=== PATIENT | male | born 1960 | race Caucasian/White ===

== ENCOUNTER 2017-04-02 14:36 | Emergency (ER) | payer OTHER ==
[~2017-04-02] VITALS: Ht 180.3 cm; Wt 106.6 kg
[~2017-04-02 14:36] MED LIST: FIORICET 325 MG1 TAB PO; LOMOTIL 0.025 M1 TAB PO
[2017-04-02 14:41] VITALS: BP 115/79
--- NOTE | 2017-04-02 14:46 | ED GENERAL ADULT ---
History of Present Illness General Chief Complaint: General Adult Stated Complaint: MED REFILL Source: patient Exam Limitations: no limitations Vital Signs & Intake/Output Vital Signs & Intake/Output Vital Signs Date Time Temp Pulse Resp B/P B/P Pulse O2 O2 Flow FiO2 Mean Ox Delivery Rate 04/02 1441 97.5 77 20 115/79 98 Room Air Allergies Coded Allergies: NO KNOWN ALLERGIES (05/09/14) Reconcile Medications Acetaminophen/Butalbital/Caf (Fioricet 325 MG-50 MG-40 MG) 1 TAB TAB 1 TAB PO TID PRN HEADACHE Bupropion HCl (Bupropion XL) 300 MG TAB.ER.24H 1 TAB PO DAILY DEPRESSION DIPHENOXYLATE HCL/ATROPINE (Lomotil 2.5-0.025 MG Tablet) 1 TAB TAB 1 TAB PO TID PRN DIARRHEA Divalproex Sodium (Depakote ER) 500 MG TAB.ER.24H 1 TAB PO QPM BIPOLAR Divalproex Sodium (Depakote ER) 250 MG TAB.ER.24H 1 TAB PO QPM BIPOLAR Propranolol HCl 10 MG TABLET 1 TAB PO BID ANXIETY Quetiapine Fumarate 200 MG TABLET 1 TAB PO QAM ANXIETY/BIPOLAR Quetiapine Fumarate (Seroquel XR) 400 MG TAB.ER.24H 1 TAB PO QPM BIPOLAR Triage Note: PT REQUESTING REFILL OF DEPRESSION MEDS AND ANGER MEDS. HAS APPT AT [facility] ON April. PT HAS BAG OF MEDS WITH HIM Triage Nurses Notes Reviewed? yes Onset: Abrupt Duration: day(s):, constant Timing: recent history Injury Environment: home No Modifying Factors: none HPI: 56-year-old male comes into the emergency room for many [place] refill. He is on many psych meds for his bipolar depression and anxiety. He reports he has an appointment with [facility] on April 12. He is currently in the transfer of his care from another facility. Denies SI or HI. Denies any other system symptoms. strictly here for medication refill. Past History Travel History Traveled to [place] past 21 day No Medical History Any Pertinent Medical History? see below for history Psychiatric: bipolar disease, depression, ANGER Surgical History Surgical History: c-spine surgery Psychosocial History Who do you live with Patient/Self Services at Home None What is your primary language Lithuanian Tobacco Use: Current Daily Use Daily Tobacco Use Amount/Type: => 5 Cigarettes daily ETOH Use: denies use Illicit Drug Use: denies illicit drug use Family History Hx Contributory? No Review of Systems Review of Systems Constitutional: Reports: no symptoms. EENTM: Reports: no symptoms. Respiratory: Reports: no symptoms. Cardiovascular: Reports: no symptoms. GI: Reports: no symptoms. Genitourinary: Reports: no symptoms. Musculoskeletal: Reports: no symptoms. Skin: Reports: no symptoms. Neurological/Psychological: Reports: see HPI. Hematologic/Endocrine: Reports: no symptoms. Immunologic/Allergic: Reports: no symptoms. All Other Systems: Reviewed and Negative Physical Exam Physical Exam General Appearance: well developed/nourished, no apparent distress, alert, awake Head: atraumatic, normal appearance Eyes: Bilateral: normal appearance. Ears, Nose, Throat: normal ENT inspection, hearing grossly normal Neck: normal inspection Respiratory: no respiratory distress Back: normal range of motion Extremities: no edema Neurologic/Psych: awake, alert, oriented x 3 Skin: intact, normal color Core Measures ACS in differential dx? No CVA/TIA Diagnosis: No Sepsis Present: No Sepsis Focused Exam Completed? No Progress Differential Diagnoses I considered the following diagnoses in my evaluation of the patient: Anxiety, depression, bipolar, Plan of Care: 04/02/2017 3:52:06 PM Patient was given a refill on medications. Follow-up with PCP. Return if any concerns worsening symptoms. Follow-up with new psychiatrist. Initial ED EKG: none Departure Departure Disposition: HOME OR SELF CARE Condition: Stable Clinical Impression Primary Impression: Medication refill Referrals: Hi Mahoney MD (PCP/Family) Additional Instructions: Take your medications as prescribed. Follow-up with your psychiatric appointment. Return if any concerns worsening symptoms. Please go over all results of today's visit with your primary care doctor. Contact your primary care doctor to let them know you were here in the emergency room. There may be nonspecific findings which may not be related to your visit today here in the emergency room but may require further evaluation and chronic monitoring by your primary care doctor. If you had a laceration today the chance of foreign body always remains. You should follow-up with your primary care doctor for recheck in 3-5 days for a wound check. If you had an x-ray done there is a chance that a fracture could have been missed on initial read and you should follow-up with your primary care doctor for repeat x-rays if symptoms persist. If your blood pressure was elevated here in the emergency room please have rechecked by amie primary care doctor within the next 48. If you were prescribed a narcotic here in the emergency room or any type of controlled substances you're not allowed to drive while taking this medication or operate any type of heavy machinery. Narcotics can make you feel lightheaded dizziness nausea and can cause constipation. You may need to pickle solution maker a stool softener. Thank you for choosing [facility] emergency room. Please return to the emergency room immediately if you have any other concerns worsening of symptoms. Departure Forms: Customer Survey General Discharge Information Prescriptions: Current Visit Scripts Quetiapine Fumarate 1 TAB PO QAM #15 TAB Divalproex Sodium (Depakote ER) 1 TAB PO QPM #15 TAB Propranolol HCl 1 TAB PO BID #30 TAB Bupropion HCl (Bupropion XL) 1 TAB PO DAILY #15 TAB Quetiapine Fumarate (Seroquel XR) 1 TAB PO QPM #15 TAB Divalproex Sodium (Depakote ER) 1 TAB PO QPM #15 TAB Critical Care Note Critical Care Note Critical Care Time: non-applicable
[2017-04-02] MEDS ORDERED: QUETIAPINE FUM200 M1 PO (15:16)
[2017-04-02] MEDS ORDERED: DEPAKOTE ER250 M1 PO (15:16)
[2017-04-02] MEDS ORDERED: SEROQUEL XR400 M1 PO (15:16)
[2017-04-02] MEDS ORDERED: DEPAKOTE ER500 M1 PO (15:16)
[2017-04-02] MEDS ORDERED: BUPROPION XL300 M1 PO (15:16)
[2017-04-02] MEDS ORDERED: PROPRANOLOL HCL10 M1 PO (15:16)
== END 2017-04-02 15:27 ==
LOC: ERH 14:36
DX: Z76.0 Encounter for issue of repeat prescription (principal)
CPT/HCPCS: 99281

== ENCOUNTER 2017-05-04 16:21 | Emergency (ER) | payer OTHER ==
[~2017-05-04] VITALS: Ht 180.3 cm; Wt 108.9 kg
[~2017-05-04 16:21] MED LIST changes: +BUPROPION XL300 M1 PO; +DEPAKOTE ER250 M1 PO; +DEPAKOTE ER500 M1 PO; +DIVALPROEX SOD250 M3 PO; +DIVALPROEX SOD500 M3 PO; +PROPRANOLOL HCL10 M1 PO; +QUETIAPINE FUM200 M1 PO; +SEROQUEL XR200 M1 PO; +SEROQUEL XR400 M1 PO
--- NOTE | 2017-05-04 16:54 | ED GENERAL ADULT ---
History of Present Illness General Chief Complaint: General Adult Stated Complaint: PT HERE FOR REFILL FOR RX Source: patient Exam Limitations: no limitations Vital Signs & Intake/Output Vital Signs & Intake/Output Vital Signs Date Time Temp Pulse Resp B/P B/P Pulse O2 O2 Flow FiO2 Mean Ox Delivery Rate 05/04 1745 97.8 69 16 138/76 98 Room Air 05/04 1627 97.5 64 16 142/87 97 Allergies Coded Allergies: NO KNOWN ALLERGIES (05/09/14) Reconcile Medications Acetaminophen/Butalbital/Caf (Fioricet 325 MG-50 MG-40 MG) 1 TAB TAB 1 TAB PO TID PRN HEADACHE Bupropion HCl (Bupropion XL) 300 MG TAB.ER.24H 1 TAB PO DAILY DEPRESSION Bupropion HCl (Bupropion XL) 300 MG TAB.ER.24H 1 TAB PO DAILY DEPRESSION DIPHENOXYLATE HCL/ATROPINE (Lomotil 2.5-0.025 MG Tablet) 1 TAB TAB 1 TAB PO TID PRN DIARRHEA Divalproex Sodium (Depakote ER) 500 MG TAB.ER.24H 1 TAB PO QPM BIPOLAR Divalproex Sodium (Depakote ER) 250 MG TAB.ER.24H 1 TAB PO QPM BIPOLAR Divalproex Sodium (Divalproex Sodium ER) 250 MG TAB.ER.24H 1 TAB PO QPM BIPOLAR Divalproex Sodium (Divalproex Sodium ER) 500 MG TAB.ER.24H 2 TAB PO QPM BIPOLAR Propranolol HCl 10 MG TABLET 1 TAB PO BID ANXIETY Propranolol HCl 10 MG TABLET 1 TAB PO DAILY PSYCH TAKE ONE IN AFTERNOON Quetiapine Fumarate 200 MG TABLET 1 TAB PO QAM ANXIETY/BIPOLAR Quetiapine Fumarate (Seroquel XR) 400 MG TAB.ER.24H 1 TAB PO QPM BIPOLAR Quetiapine Fumarate 200 MG TABLET 1 TAB PO QAM ANXIETY/BIPOLAR Quetiapine Fumarate (Seroquel XR) 200 MG TAB.ER.24H 2 TAB PO QPM BIPOLAR Triage Note: PT STATES THAT HE MISSED HIS D[facility] APPOINTMENT YESTERDAY AND THAT HE NEEDS A REFILL ON DEPAKOTE,WELLBUTRIN,PROPRANOLOL. STATES THAT HE IS IN BETWEEN DOCTORS Triage Nurses Notes Reviewed? yes Onset: Gradual Duration: constant Timing: recent history Severity: moderate Severity Numbers: 5 HPI: Patient is a 57-year-old male with a past medical history of depression and bipolar disorder who presents to the emergency room only for medication refill where he states that earlier this week he missed his [facility] appointment because he slept in which patient has ran out of his medications 2 days ago, patient has ran out of propranolol Depakote Seroquel and bupropion. Patient denies any illness denies any suicidal homicidal ideation or change in anxiety or depression is otherwise without complaints (Mark Iraheta) Past History Travel History Traveled to [place] past 21 day No Medical History Any Pertinent Medical History? see below for history Neurological: NONE EENT: NONE Cardiovascular: NONE Respiratory: NONE Gastrointestinal: NONE Hepatic: NONE Renal: NONE Musculoskeletal: NONE Psychiatric: bipolar disease, depression, ANGER Endocrine: NONE Blood Disorders: NONE Cancer(s): NONE SALES REPRESENTATIVE DOOR TO DOOR/Reproductive: NONE Surgical History Surgical History: c-spine surgery Psychosocial History Who do you live with Patient/Self Services at Home None What is your primary language Pashto Tobacco Use: Current Daily Use Daily Tobacco Use Amount/Type: => 5 Cigarettes daily ETOH Use: denies use Illicit Drug Use: marijuana Family History Hx Contributory? No (Mark Iraheta) Review of Systems Review of Systems Constitutional: Reports: no symptoms. EENTM: Reports: no symptoms. Respiratory: Reports: no symptoms. Cardiovascular: Reports: no symptoms. GI: Reports: no symptoms. Genitourinary: Reports: no symptoms. Musculoskeletal: Reports: no symptoms. Skin: Reports: no symptoms. Neurological/Psychological: Reports: no symptoms. Hematologic/Endocrine: Reports: no symptoms. Immunologic/Allergic: Reports: no symptoms. All Other Systems: Reviewed and Negative (Mark Iraheta) Physical Exam Physical Exam General Appearance: no apparent distress, alert Head: atraumatic Eyes: Bilateral: normal appearance. Ears, Nose, Throat: hearing grossly normal Neck: normal inspection Respiratory: normal breath sounds Cardiovascular: regular rate/rhythm Extremities: normal inspection Neurologic/Psych: no motor/sensory deficits Skin: intact Core Measures ACS in differential dx? No CVA/TIA Diagnosis: No Sepsis Present: No Sepsis Focused Exam Completed? No (Mark Iraheta) Progress Differential Diagnoses I considered the following diagnoses in my evaluation of the patient: [Anxiety depression bipolar disorder medication refill] Plan of Care: Patient currently denies any illness and his medications were confirmed from his previous prescriptions and was strongly advised to follow-up with his psychiatrist for medication refill Pre-Hospital EKG: none Initial ED EKG: none (Mark Iraheta) Departure Departure Disposition: HOME OR SELF CARE Condition: Stable Clinical Impression Primary Impression: Bipolar disorder Secondary Impressions: Medication refill Referrals: Hi Mahoney MD (PCP/Family) Additional Instructions: As discussed begin the prescription refills of propranolol Depakote Seroquel and bupropion, prescriptions waiting at [facility]. If symptoms worsen or if you develop a new concerning symptom return to the emergency room, please call your psychiatrist tomorrow to reestablish an appointment for further evaluation and medication refills Departure Forms: Customer Survey General Discharge Information (Mark Iraheta) PA/ESCROW CLERK Co-Sign Statement Statement: ED Attending supervision documentation- [] I saw and evaluated the patient. I have also reviewed all the pertinent lab results and diagnostic results. I agree with the findings and the plan of care as documented in the PA's/ESCROW CLERK's documentation. [X] I have reviewed the ED Record and agree with the PA's/ESCROW CLERK's documentation. [] Additions or exceptions (if any) to the PAs/ESCROW CLERK's note and plan are summarized below: [] (Jey Andujar DO) Critical Care Note Critical Care Note Critical Care Time: non-applicable (Mark Iraheta)
[2017-05-04 17:45] VITALS: BP 138/76
== END 2017-05-04 17:46 ==
LOC: ERH 16:21
DX: F31.9 Bipolar disorder, unspecified (principal); Z76.0 Encounter for issue of repeat prescription
CPT/HCPCS: 99281